=== PATIENT | female | born 1985 | race Caucasian/White ===

== ENCOUNTER 2020-05-04 11:10 | Observation (INO) | payer MEDICARE, MEDICAID ==
[2020-05-02 11:39] VITALS: BMI 52.7
[~2020-05-04 11:10] MED LIST: Albuterol Sulfate HFA (OR ONLY) ONE; Dexamethasone 20 MG/5 ML VIAL ONE; Lidocaine 1% PF 5 ML VIAL ONE; Ondansetron PF 4 MG/2 ML Vial ONE; PHENYLEPHRINE-NS 100 MCG/ML 10 ML SYRINGE ONE; PROPOFOL 200 MG/20 ML VIAL ONE; Rocuronium Bromide 10 MG/ML (10ML VIAL) ONE
[2020-05-04] MEDS ORDERED: Fentanyl 100 MCG/2 ML VIAL ONE ×2 (12:02→17:45)
[2020-05-04] MEDS ORDERED: AFRIN NASAL MIST 15 ML BOT ONE ×2 (12:06→13:54)
[2020-05-04] MEDS ORDERED: EPINEPHrine 1 MG/ML AMP ONE (13:54)
[2020-05-04] MEDS ORDERED: XYLOCAINE 2%-EPI 1:100,000 20 ML VIAL ONE (13:54)
[2020-05-04] MEDS ORDERED: Midazolam HCl 5 mg/5 ml Vial ONE (13:59)
[2020-05-04] MEDS ORDERED: Midazolam HCl 2 mg/2 ml Vial ONE (13:59)
[2020-05-04] MEDS ORDERED: SUGAMMADEX SODIUM 200 MG/2 ML VIAL ONE (14:48)
[2020-05-04] MEDS ORDERED: Ondansetron HCl/PF 4 MG/2 ML Vial IVP PRN (15:35)
[2020-05-04] MEDS ORDERED: Promethazine HCl 25 MG/ML VIAL SLOW IVP PRN (15:35)
[2020-05-04] MEDS ORDERED: Promethazine HCl 25 MG/ML VIAL IM PRN (15:35)
--- NOTE | 2020-05-04 15:51 | RAD ---
Exam: Chest one view HISTORY:Congestion Comparison: None FINDINGS: Cardiac silhouette: Normal Aorta: Unremarkable Pulmonary vessels: Normal Costophrenic angles: Clear LUNGS: No masses or consolidation. Pneumothorax: None Osseous abnormalities: None IMPRESSION: No acute cardiopulmonary process.
[2020-05-04] MEDS ORDERED: Acetaminophen 325 MG TAB PO PRN (17:47)
[2020-05-04] MEDS ORDERED: Ondansetron ODT 4 MG TAB PO PRN (17:47)
--- NOTE | 2020-05-04 19:07 | CON ---
DATE OF CONSULTATION: CHIEF COMPLAINT: Chronic sinusitis. HISTORY OF PRESENT ILLNESS: The patient is a 35-year-old female with a past medical history significant for chronic sinusitis, who presented to the hospital for a scheduled submucosal sinus surgery with Dr. Small. The patient has a history of hypertension, hypothyroidism, peripheral neuropathy, depression, and bone dysplasia. We have been consulted for medical management of her chronic conditions status post surgery. The patient is postop day zero. Upon examination, the patient denies any fever or chills. She denies any cough, shortness of breath, or wheezing. She denies any chest pain, heart palpitations, or lightheadedness. She denies any abdominal pain, nausea, vomiting, or diarrhea. She has no complaints at this time. PAST MEDICAL HISTORY: 1. Hypertension. 2. Hypothyroidism. 3. Peripheral neuropathy. 4. Bone dysplasia. 5. Depression. 6. Chronic sinusitis. PAST SURGICAL HISTORY: 1. Tonsillectomy. 2. Cholecystectomy. SOCIAL HISTORY: She lives with her family. She is a former smoker, quit in 2012. She has no history of illicit drug use or heavy alcohol intake. She ambulates independently without any assistive devices. She does not work. FAMILY HISTORY: Noncontributory to this case. ALLERGIES: 1. CEPHALEXIN. 2. CIPROFLOXACIN. 3. MORPHINE. 4. SULFAMETHOXAZOLE. 5. TRIMETHOPRIM. HOME MEDICATIONS: 1. Buspirone 15 mg p.o. t.i.d. 2. Flexeril 10 mg p.o. b.i.d. 3. Cymbalta 30 mg p.o. at bedtime. 4. Gabapentin 600 mg p.o. b.i.d. 5. Ibuprofen 800 mg p.o. b.i.d. 6. Levothyroxine 175 mcg p.o. q.a.m. 7. Tramadol 50 mg p.o. b.i.d. REVIEW OF SYSTEMS: All review of systems are negative unless otherwise stated in the HPI. PHYSICAL EXAMINATION: VITAL SIGNS: Afebrile, normal BP, pulse 93, respirations 17, 100% on room air. CONSTITUTIONAL: The patient appears comfortable, no acute distress. Speaking in complete sentences. Nontoxic in appearance. HEAD: Atraumatic and normocephalic. EYES: PERRLA. Extraocular muscles intact. ENT: Clear. Uvula is midline. Moist mucous membranes. NECK: Full range of motion. No cervical spinous tenderness. RESPIRATORY/CHEST: Respirations even, nonlabored. Clear to auscultation. No rhonchi, wheezes, or rales. CARDIOVASCULAR: S1, S2 appreciated. No murmurs, rubs, or gallops. ABDOMEN: Soft, nontender, nondistended. Active bowel sounds. No guarding. No rigidity. No rebound. BACK: No CVA tenderness. EXTREMITIES: Upper extremities; full range of motion, normal strength, sensation intact. Palpable radial pulses. Lower extremities; full range of motion, normal strength, sensation intact. Palpable pedal pulses. NEUROLOGIC: She is A and O x4. Follows commands. Speaks in complete sentences. Cranial nerves 2 through 12 intact. PSYCHIATRIC: Denies SI, HI, and A and O x4. LABORATORY DATA AND DIAGNOSTICS: Hematocrit 42.6. Chest x-ray, no acute cardiopulmonary process. IMPRESSION: 1. Acute respiratory failure with hypoxia. 2. Aspiration pneumonia, suspected as per concern. 3. Hypertension, chronic. 4. Hypothyroidism, chronic. 5. Chronic sinusitis. 6. Peripheral neuropathy. 7. Bone dysplasia. 8. Depression. PLAN: The patient is postop day #0 from having mucosal sinus surgery with Dr. Small. The surgery went well, however, there is concern that the patient aspirated some blood with extubation. The patient reportedly desaturated to 92% on room air and developed wheezing with mild respiratory distress for a short time of approximately 1 hour. The patient was given albuterol nebs and placed on a mask with supplemental oxygen. Upon assessment, the patient has no acute distress. She is 98% to 100% on room air, speaking in complete sentences. We have been consulted for medical management of her chronic conditions. We will continue to monitor her oxygen saturation. We will repeat a chest x-ray in the a.m. We will order a CBC and BMP in the a.m. No antibiotics for now. We will restart home medications. ENT to manage postop care. SCDs for deep venous thrombosis prophylaxis. No gastrointestinal prophylaxis. Code status is full code. Discussed the case with attending physician, Dr. Christie, who agrees with plan of care. Job ID: [id number] [facility]
[2020-05-04] MEDS ORDERED: Albuterol 200 PUFF (6.7GM INHALER) INH PRN (19:40)
[2020-05-04] MEDS: Gabapentin 300 MG CAP PO SCH (19:59)
[2020-05-04] MEDS: Cyclobenzaprine 10 MG TAB PO SCH (19:59)
[2020-05-04] MEDS: traMADol HCl 50 MG TAB PO SCH (20:00)
[2020-05-04] MEDS: busPIRone HCl 10 MG TAB PO SCH (20:00)
[2020-05-04] MEDS ORDERED: Loperamide HCl 2 MG CAP PO PRN (20:55)
[2020-05-04] MEDS ORDERED: DULoxetine 30 MG CAP PO SCH (21:00)
[2020-05-05] MEDS: traMADol HCl 50 MG TAB PO SCH (05:32)
[2020-05-05] MEDS: Cyclobenzaprine 10 MG TAB PO SCH (05:32)
[2020-05-05] MEDS: Gabapentin 300 MG CAP PO SCH (05:33)
[2020-05-05 05:36] LABS: #Basophils 0.1 thou/uL (0.0-0.2); #Lymphocytes 1.8 thou/uL (1.20-3.40); #Monocytes 0.4 thou/uL (0.11-0.59); #Neutrophils 12.2 thou/uL (1.40-6.50); %Basophils 0.6 % (0.0-1.0); %Eosinophils 0.1 % (0.0-10.0); %Lymphocytes 12.5 % (21.0-51.0); %Monocytes 2.5 % (0.0-10.0); %Neutrophils 84.4 % (42.0-75.0); Hemoglobin 14.7 g/dL (12.0-16.0); Mean Corpuscular Hemoglobin 31.7 pg (27.0-31.0); Mean Corpuscular Volume 93.2 fL (78.0-98.0); Mean Platelet Volume 7.2 fL (7.4-10.4); Platelet Count 314 thou/uL (130-400); Red Blood Cell (RBC) Count 4.64 mill/uL (4.20-5.40); White Blood Cell (WBC) Count 14.4 thou/uL (4.8-10.8)
[2020-05-05] MEDS ORDERED: Levothyroxine 175 MCG TAB PO SCH (06:00)
[2020-05-05 06:21] LABS: Anion Gap 20 mmol/L (10-20); BUN (Urea Nitrogen) 17 mg/dL (7.0-18.7); Calc. Creatinine Clearance 151 mL/min (70-130); Calcium 9.2 mg/dL (7.8-10.44); Carbon Dioxide 16 mmol/L (22-29); Chloride 102 mmol/L (98-107); Glucose 159 mg/dL (70-105); Potassium 4.2 mmol/L (3.5-5.1); Sodium 134 mmol/L (136-145)
--- NOTE | 2020-05-05 07:09 | OP ---
DATE OF PROCEDURE: 05/04/2020 PREOPERATIVE DIAGNOSES: 1. Chronic facial pain. 2. Bilateral hypoplastic maxillary sinus syndrome. 3. Hypertrophic inferior turbinates. POSTOPERATIVE DIAGNOSES: 1. Chronic facial pain. 2. Bilateral hypoplastic maxillary sinus syndrome. 3. Hypertrophic inferior turbinates. PROCEDURES PERFORMED: 1. Bilateral nasal endoscopy with maxillary antrostomy. 2. Bilateral nasal endoscopy with submucosal resection of inferior turbinates. FINDINGS: The patient had very narrow openings to maxillary sinuses with the hypoplastic sinuses were identified, worse on the left, causing a very elongated entrance into the maxillary sinus with an extra long uncinate. The inferior turbinates were quite generous and addressed at the same time. DESCRIPTION OF PROCEDURE: BILATERAL NASAL ENDOSCOPY WITH MAXILLARY ANTROSTOMY: The uncinate was then identified and the extent of the uncinate was appreciated by out-fracturing the uncinate with the ball-tip probe. We then used the sickle blade to disarticulate the uncinate from the lateral nasal wall. This was then removed with straight biting and upbiting punches with the remaining shrouds of mucosa and bony septum removed with the micro-debrider. The natural os of the maxillary sinus was then identified and enlarged with the maxillary punches and back biting forceps. BILATERAL NASAL ENDOSCOPY WITH SUBMUCOSAL RESECTION OF INFERIOR TURBINATES: After consent was obtained, the patient was identified, brought to the operating room, and placed on the operating room table in the supine position. Consent was obtained, notifying the patient of the possibility of additional infections, bleeding, brain injury, and eye/orbital injury. The patient was placed on the operating room table, and general endotracheal anesthesia and intravenous access was obtained. The patient was then positioned, prepped and draped for endoscopic sinus surgery. Nasal preparation included trimming nasal vestibular hairs and spraying in topical Afrin. We then placed Afrin topical solution on nasal pledgets and strategically located them intranasally. The perinasal mucosa was injected with 1% lidocaine with 1:100,000 epinephrine in the submucoperichondrial plane of the septum, lateral nasal wall, and anterior to the uncinate. The patient was then prepped and draped in a sterile fashion and positioned for endoscopic sinus surgery. With the 0-degree endoscope, the patient underwent systematic nasal endoscopy. There were no suspicious internasal masses or lesions identified. We then focused our attention to the osteomeatal complex region under the middle turbinate. The inferior turbinates were visualized with a 0 degree endoscope and outfractured with a Andre elevator. The inferior medial aspect was cauterized with the electrocautery. Hemostasis was obtained . After adequate airway was established, we turned our attention to the contralateral side and used a similar procedure. Again, a [place] elevator was used to outfracture inferior turbinates under endoscopic visualization. With a suction cautery, the free inferior medial aspect was cauterized under direct visualization along the length of the inferior turbinate. At this point, we then turned our attention to the contralateral side and proceeded with endoscopic sinus surgery. At the completion of the case, [place] keel splints were placed in the ethmoid cavities after the ethmoidectomy. There were no complications. The patient tolerated the procedure well and was discharged to the recovery room in stable condition prior to return to the preoperative day stay with ultimate discharge home. Prescriptions for pain medication and antibiotics were provided. The patient received intramuscular Depo-Medrol during the case. Job ID: [id number]
[2020-05-05] MEDS: busPIRone HCl 10 MG TAB PO SCH (09:02)
--- NOTE | 2020-05-05 09:52 | RAD ---
2 VIEW CHEST: Date: 05/05/2020 HISTORY: Hypoxia. COMPARISON: 05/04/2020. FINDINGS: Lungs appear clear and well aerated. No infiltrate identified. No evidence of vascular congestion or edema. Heart size normal. Osseous structures appear normal. IMPRESSION: No acute process identified. POS: OFF
[2020-05-05] MEDS ORDERED: Carvedilol 6.25 MG TAB PO SCH ×2 (11:00→17:00)
--- NOTE | 2020-05-05 12:37 | EKG ---
Test Reason : PREOP Blood Pressure : / mmHG Vent. Rate : 092 BPM Atrial Rate : 092 BPM P-R Int : 142 ms QRS Dur : 084 ms QT Int : 330 ms P-R-T Axes : 033 -40 033 degrees QTc Int : 408 ms Normal sinus rhythm Left axis deviation Abnormal ECG No previous ECGs available Confirmed by MANUELA MOORE ([id number]) on 05/05/2020 12:36:38 PM Referred By: KEELEY Confirmed By:MANUELA MOORE
--- NOTE | 2020-05-05 12:43 | EKG ---
Test Reason : Blood Pressure : / mmHG Vent. Rate : 100 BPM Atrial Rate : 100 BPM P-R Int : 142 ms QRS Dur : 082 ms QT Int : 320 ms P-R-T Axes : 034 -44 026 degrees QTc Int : 412 ms Normal sinus rhythm Left axis deviation Abnormal ECG Confirmed by MANUELA MOORE ([id number]) on 05/05/2020 12:42:54 PM Referred By: ADONIS Confirmed By:MANUELA MOORE
--- NOTE | 2020-05-05 14:12 | PDOC.HOSPP ---
- Subjective Encounter Date: 05/05/20 Encounter Time: 10:30 Subjective: Patient denies complaints and is ready to go home. She has no cough or shortness of breath. She did have a low-grade temperature of 99.2 this morning however that has resolved and she never spiked a full temperature. - Objective Vital Signs & Weight: Vital Signs (12 hours) Temp Pulse Resp BP Pulse Ox 05/05/20 10:48 98.3 F 105 H 18 102/67 96 05/05/20 07:30 99.2 F 108 H 18 107/60 96 05/05/20 03:46 99.0 F 108 H 18 105/71 98 Weight Weight 261 lb Result Diagrams: 05/05/20 05:26 05/05/20 05:25 Hospitalist ROS - Review of Systems Constitutional: denies: fever, chills Respiratory: denies: cough, shortness of breath Cardiovascular: denies: chest pain, palpitations Gastrointestinal: denies: nausea, vomiting, abdominal pain Genitourinary: denies: dysuria, hematuria - Medication Medications: Active Medications Generic Name Dose Route Start Last Admin Trade Name Freq PRN Reason Stop Dose Admin Albuterol Sulfate 2 puff 05/04/20 19:40 05/04/20 20:52 Albuterol 200 Puff (6.7gm Inhaler) INH 2 puff Q2H PRN Administration Wheezing Buspirone HCl 15 mg 05/04/20 21:00 05/05/20 09:02 Buspirone Hcl 10 Mg Tab PO 15 mg TID ASHLEY Administration Cyclobenzaprine HCl 10 mg 05/04/20 21:00 05/05/20 05:32 Cyclobenzaprine 10 Mg Tab PO 10 mg BID ASHLEY Administration Duloxetine HCl 30 mg 05/04/20 21:00 05/04/20 20:00 Duloxetine 30 Mg Cap PO 30 mg HS ASHLEY Administration Gabapentin 600 mg 05/04/20 21:00 05/05/20 05:33 Gabapentin 300 Mg Cap PO 600 mg BID ASHLEY Administration Levothyroxine Sodium 175 mcg 05/05/20 06:00 05/05/20 05:32 Levothyroxine 175 Mcg Tab PO 175 mcg 0600 ASHLEY Administration Loperamide HCl 2 mg 05/04/20 20:55 05/04/20 21:28 Loperamide Hcl 2 Mg Cap PO 2 mg PRN PRN Administration Diarrhea/Loose Stools Ondansetron HCl 4 mg 05/04/20 17:47 05/04/20 21:28 Ondansetron Odt 4 Mg Tab PO 4 mg Q6H PRN Administration Nausea/Vomiting Tramadol HCl 50 mg 05/04/20 21:00 05/05/20 05:32 Tramadol Hcl 50 Mg Tab PO 50 mg BID ASHLEY Administration - Exam General Appearance: NAD, awake alert ENT: moist mucosa Heart: RRR, no murmur, no gallops, no rubs Respiratory: CTAB, no wheezes, no rales, no ronchi Gastrointestinal: soft, non-tender, non-distended, normal bowel sounds Psychiatric: normal affect, normal behavior, A&O x 3 Hosp A/P - Plan This is a 35-year-old white female with a past medical history of chronic sinusitis who was admitted to the hospital by Dr. Small for sinus surgery. She did have some question of aspiration of blood after the procedure and had a temporary desaturation to 92% but came back up to 100% on room air ever since then. We have been consulted for medical management. -Acute hypoxic respiratory failure Resolved. Chest x-ray negative for infection this morning. Patient without symptoms. -Mild tachycardia Patient finally remembered which medicine she is on. She is supposed to take carvedilol twice a day. We will resume this medication. -Hypertension We will resume home medications -Hypothyroidism We will resume home medications -Depression We will resume home medications -Disposition Patient is cleared from our standpoint to be discharged home whenever Dr. Small is ready. She should follow-up with her primary care physician in 1 to 2 weeks.
--- NOTE | 2020-05-05 14:14 | PDOC.DS.DS ---
Provider - Provider Date of Admission: 05/04/20 15:57 Date of Discharge: 05/05/20 Admitting Provider: Greg Small MD Consultations: Other (Hospitalist service) Primary Care Physician: OUT OF TOWN Course - Hospital Course Hospital Course: This is a 35-year-old white female with a past medical history of chronic sinusitis who was admitted to the hospital by Dr. Small for sinus surgery. She did have some question of aspiration of blood after the procedure and had a temporary desaturation to 92% but came back up to 100% on room air ever since then. We have been consulted for medical management. -Acute hypoxic respiratory failure Resolved. Chest x-ray negative for infection this morning. Patient without symptoms. -Mild tachycardia Patient finally remembered which medicine she is on. She is supposed to take carvedilol twice a day. We will resume this medication. -Hypertension We will resume home medications -Hypothyroidism We will resume home medications -Depression We will resume home medications -Disposition Patient is cleared from our standpoint to be discharged home whenever Dr. Small is ready. She should follow-up with her primary care physician in 1 to 2 weeks. Pertinent Studies: Chest x-ray negative for infection EKG with normal sinus rhythm. Resuscitation Status: 05/04/20 17:47 Resuscitation Status Routine Co-Sign Provider: Resuscitation Status: FULL: Full Resuscitation Discussed with: patient - Labs Lab Results: 05/05/20 05:26 05/05/20 05:25 Abnormal Lab Results - Last 48 hrs 05/05/20 05:25: Sodium 134 L, Carbon Dioxide 16 L 05/05/20 05:26: WBC 14.4 H, MCH 31.7 H, MPV 7.2 L, Neutrophils % 84.4 H, Lymphocytes % 12.5 L, Neutrophils # 12.2 H - Physical Exam Vitals: Vital Signs (12 hours) Temp Pulse Resp BP Pulse Ox 05/05/20 10:48 98.3 F 105 H 18 102/67 96 05/05/20 07:30 99.2 F 108 H 18 107/60 96 05/05/20 03:46 99.0 F 108 H 18 105/71 98 Weight Weight 261 lb Physical Exam: The patient was seen and examined on the day of discharge. Problem - Discharge Plan Assessment: -Acute hypoxic respiratory failure Resolved. Chest x-ray negative for infection this morning. Patient without symptoms. -Mild tachycardia Patient finally remembered which medicine she is on. She is supposed to take carvedilol twice a day. We will resume this medication. -Hypertension We will resume home medications -Hypothyroidism We will resume home medications -Depression We will resume home medications Plan of Treatment: Discharge home. Follow-up with primary care physician in 1 to [address] Small as directed. Any antibiotics as per Dr. Small's directions. - Time spent with Patient (mins): 15 Plan - Discharge Medications Home Medications: Medication Instructions Recorded Confirmed Type Cyclobenzaprine [Flexeril] 10 mg PO BID 05/02/20 05/04/20 History DULoxetine HCl [Cymbalta] 30 mg PO HS 05/02/20 05/04/20 History Gabapentin 600 mg PO BID 05/02/20 05/04/20 History Ibuprofen 4 tab PO BID 05/02/20 05/04/20 History Levothyroxine Sodium [Euthyrox] 1 tab PO DAILY 05/02/20 05/04/20 History busPIRone HCl [Buspirone HCl] 1 tab PO TID 05/02/20 05/04/20 History traMADol HCl [Tramadol HCl] 1 tab PO BID 05/02/20 05/04/20 History Carvedilol [Coreg] 1 tab PO BID 05/05/20 05/05/20 History Allergies: cephalexin [From Keflex] Allergy (Verified 05/04/20 23:32) ciprofloxacin [From Cipro] Allergy (Verified 05/04/20 23:32) morphine Allergy (Verified 05/04/20 23:32) sulfamethoxazole [From Bactrim] Allergy (Verified 05/04/20 23:32) trimethoprim [From Bactrim] Allergy (Verified 05/04/20 23:32) - Discharge Instructions Activity:: Activity as Tolerated Nourishment:: Heart Healthy Diet Therapies:: Not Applicable Equipment/Supplies:: Not Applicable IV Therapy:: Not Applicable - Follow up Plan Referrals: [facility],OUT OF [Primary Care Provider] - Disposition: HOME Quality - Care Measures CORE MEASURES:: N/A
[2020-05-05 16:21] VITALS: BP 100/62; TEMP 98.9
== END 2020-05-05 16:23 | disposition home or self-care (01) ==
LOC: SDC 11:10 → SURG A 15:57
PROVIDERS: ADMIT Specialist; ATTEND Emergency Medicine
PROC: 099R8ZZ Drainage of Left Maxillary Sinus, Via Natural or Artificial Opening Endoscopic (ICD-10-PCS; principal; 2020-05-04)
PROC: 099Q8ZZ Drainage of Right Maxillary Sinus, Via Natural or Artificial Opening Endoscopic (ICD-10-PCS; 2020-05-04)
PROC: 09TL8ZZ Resection of Nasal Turbinate, Via Natural or Artificial Opening Endoscopic (ICD-10-PCS; 2020-05-04)
DX: J32.9 Chronic sinusitis, unspecified (principal); J34.89 Other specified disorders of nose and nasal sinuses; J34.3 Hypertrophy of nasal turbinates; G89.29 Other chronic pain; R51.9 Headache, unspecified; J96.01 Acute respiratory failure with hypoxia; I10 Essential (primary) hypertension; E03.9 Hypothyroidism, unspecified; F32.9 Major depressive disorder, single episode, unspecified; G62.9 Polyneuropathy, unspecified; E78.5 Hyperlipidemia, unspecified; K21.9 Gastro-esophageal reflux disease without esophagitis; F41.9 Anxiety disorder, unspecified; M35.9 Systemic involvement of connective tissue, unspecified; H66.90 Otitis media, unspecified, unspecified ear; Z87.891 Personal history of nicotine dependence; Z79.899 Other long term (current) drug therapy; Z88.1 Allergy status to other antibiotic agents; Z88.2 Allergy status to sulfonamides; Z88.5 Allergy status to narcotic agent
CPT/HCPCS: 30140; 31256; 71045; 71046; 80048; 85014; 85025; 93005 ×2; 94660; G0378 ×2; 36415; 93010; J0171; J1100; J2250; J2405; J2704; J3010; J7620; Q0162